=== PATIENT | male | born 1955 | race Caucasian/White ===

== ENCOUNTER 2021-08-15 12:57 | Inpatient (IN) ==
[2021-08-15] MEDS ORDERED: Isovue-370 500 ML BOTTLE IVP ONE (13:33)
[2021-08-15] MEDS ORDERED: Aspirin 325 MG TABLET PO ONE (13:48)
[2021-08-15 14:24] LABS: ABG Base Excess 6 mEq/L (-2 to 3); ABG HCO3 34 mEq/L (21-27); ABG Oxygen Saturation 93 % (95-98); ABG PCO2 61 mmHg (35-45); ABG PH 7.36 pH Units (7.32-7.45); ABG PO2 72 mmHg (85-104); ABG TCO2 36 mEq/L (20-26)
[2021-08-15 14:37] LABS: Red Cell Distribution Width 13.2 % (11.5-14.5)
[2021-08-15 14:38] LABS: Hematocrit 40.5 % (37.5-50.1); Hemoglobin 12.7 g/dL (12.9-16.9); Mean Corpuscular HGB Conc 31.4 g/dL (31.6-35.5); Mean Corpuscular Hemoglobin 29.8 pg (28.0-33.3); Mean Corpuscular Volume 95.1 fL (83.0-100.0); Platelet Count 265 K/mcL (140-400); Red Blood Count 4.26 M/mcL (4.19-5.50); White Blood Count 25.1 K/mcL (4.3-11.1)
[2021-08-15] MEDS ORDERED: cefTRIAXone 1,000 MG in 0.9 % Sodium Chloride Mini Bag 100 ML IVPB ONE (14:45)
[2021-08-15] MEDS ORDERED: Azithromycin 500 MG in 0.9 % Sodium Chloride 250 ML IVPB ONE (14:45)
[2021-08-15 14:48] LABS: INR 1.4; Prothrombin Time 15.2 Seconds (9.4-12.1)
[2021-08-15 14:50] LABS: Activated Partial Thrombo Time 32.7 Seconds (26.0-36.0)
[2021-08-15 15:07] LABS: Influenza A PCR Negative (Negative); Influenza B PCR Negative (Negative); Resp. Syncytial Virus PCR Negative (Negative)
[2021-08-15 15:07] LABS: Alanine Aminotransferase 17 Units/L (7-52); Albumin/Globulin Ratio 0.9 (1.1-2.2); Alkaline Phosphatase 68 Units/L (34-104); Aspartate Amino Transferase 42 Units/L (13-39); BUN/Creatinine Ratio 21 (6-26); Bilirubin,Direct 0.3 mg/dL (0.0-0.2); Bilirubin,Indirect 0.7 mg/dL (0.0-1.0); Blood Urea Nitrogen 22 mg/dL (8-23); Calcium 8.6 mg/dL (8.6-10.3); Carbon Dioxide 31 mEq/L (23-29); Chloride 93 mEq/L (98-107); Globulin 3.5 g/dL (2.4-3.5); Glucose 121 mg/dL (70-105); Osmolality,Calculated 285 (280-300); Potassium 4.1 mEq/L (3.5-5.1); Sodium 135 mEq/L (136-145); Total Protein 6.5 g/dL (6.4-8.9); Troponin I 0.13 ng/mL (< 0.04); eGFR For African Americans > 60 (> 60); eGFR For Non-African Americans > 60 (> 60)
[2021-08-15 15:10] LABS: Eosinophils # 0.5 K/mcL (0.0-0.6); Neutrophils # 21.6 K/mcL (1.6-8.9); Platelet Estimate Normal (Normal); Toxic Granulation Present (Not Present)
[2021-08-15 15:12] LABS: SARS-CoV-2 by PCR (In House) Negative (Negative)
[2021-08-15] MEDS ORDERED: 0.9 % Sodium Chloride 1,000 ML IV ONE (16:10)
[2021-08-15] MEDS ORDERED: Ondansetron 4 MG/2 ML VIAL IVP PRN (16:17)
[2021-08-15] MEDS ORDERED: Naloxone 0.4 MG/ML INJ IVP PRN (16:17)
[2021-08-15] MEDS ORDERED: Perflutren Lipid Microsphere 1.3 ML in 0.9 % Sodium Chloride 8.7 ML IVP PRN (17:14)
[2021-08-15] MEDS ORDERED: Ipratropium/Albuterol Neb 3 ML IH PRN (17:15)
[2021-08-15] MEDS ORDERED: *HR* Dextrose 50 % in Water (Syg) 50 ML SYRINGE IVP PRN (17:23)
[2021-08-15] MEDS ORDERED: Dextrose Gel 15 GM/37.5 ML TUBE PO PRN ×2 (17:23)
[2021-08-15] MEDS ORDERED: D5% in Water 1,000 ML IVC PRN (17:23)
[2021-08-15] MEDS ORDERED: Furosemide 40 MG/4 ML VIAL IVP ONE (17:27)
[2021-08-15] MEDS ORDERED: Vancomycin 2,000 MG/520 ML IV.SOLN IVPB SCH (19:00)
[2021-08-15] MEDS: Budesonide/Formoterol 160/4.5 1 PUFF INH IH SCH (20:34)
[2021-08-15] MEDS: Vancomycin 1,500 MG/265 ML IV.SOLN IVPB SCH (21:25)
[2021-08-15] MEDS: Insulin LISPRO 300 UNITS/3 ML VIAL SUBQ SCH (21:31)
[2021-08-16] MEDS ORDERED: *HR* Heparin 5,000 UNIT/ML VIAL SQ SCH (06:00)
[2021-08-16] MEDS: Vancomycin 1,500 MG/265 ML IV.SOLN IVPB SCH ×2 (06:16→17:37)
[2021-08-16 07:27] LABS: Basophils % 0.2 %; Hematocrit 40.6 % (37.5-50.1); Hemoglobin 12.2 g/dL (12.9-16.9); Immature Granulocytes % 0.5 % (0-4); Lymphocytes # 1.1 K/mcL (0.6-4.6); Lymphocytes % 5.4 %; Mean Corpuscular Volume 96.4 fL (83.0-100.0); Mean Platelet Volume 10.5 fL (9.4-12.4); Monocytes # 1.5 K/mcL (0.0-1.3); Monocytes % 7.3 %; Neutrophils # 18.2 K/mcL (1.6-8.9); Platelet Count 272 K/mcL (140-400); Red Blood Count 4.21 M/mcL (4.19-5.50); Red Cell Distribution Width 13.3 % (11.5-14.5); Segmented Neutrophils % 86.6 %
[2021-08-16 07:40] LABS: BUN/Creatinine Ratio 32 (6-26); Blood Urea Nitrogen 30 mg/dL (8-23); Calcium 8.9 mg/dL (8.6-10.3); Carbon Dioxide 35 mEq/L (23-29); Chloride 94 mEq/L (98-107); Glucose 102 mg/dL (70-105); Magnesium 2.3 mg/dL (1.6-2.6); Osmolality,Calculated 288 (280-300); Phosphorous 3.7 mg/dL (2.7-4.5); Potassium 3.8 mEq/L (3.5-5.1); Sodium 136 mEq/L (136-145); eGFR For African Americans > 60 (> 60); eGFR For Non-African Americans > 60 (> 60)
[2021-08-16] MEDS: Budesonide/Formoterol 160/4.5 1 PUFF INH IH SCH ×2 (08:05→19:46)
[2021-08-16 08:24] LABS: Troponin I 0.11 ng/mL (< 0.04)
[2021-08-16] MEDS: Insulin LISPRO 300 UNITS/3 ML VIAL SUBQ SCH ×4 (08:36→21:09)
[2021-08-16] MEDS: Aspirin Enteric Coated 81 MG Tablet PO SCH (08:37)
[2021-08-16] MEDS: Piperacillin/Tazobactam 3.375 GM in 0.9 % Sodium Chloride Mini Bag 100 ML IVPB SCH ×3 (08:38→23:59)
[2021-08-16] MEDS: FLUoxetine 20 MG CAPSULE PO SCH (08:38)
[2021-08-16] MEDS: Furosemide 40 MG/4 ML VIAL IVP SCH (08:40)
[2021-08-16] MEDS ORDERED: amLODIPine 5 MG TABLET PO SCH (09:00)
[2021-08-16] MEDS: *HR* Metoprolol 5 MG/5 ML VIAL IVP PRN (14:49)
[2021-08-16] MEDS: *HR* Enoxaparin 120 MG/0.8 ML SYRINGE SQ SCH (17:37)
[2021-08-16] MEDS: DilTIAZem 50 MG in 0.9 % Sodium Chloride 40 ML IVC SCH (18:48)
[2021-08-17] MEDS: DilTIAZem 50 MG in 0.9 % Sodium Chloride 40 ML IVC SCH (03:00)
[2021-08-17] MEDS: *HR* Enoxaparin 120 MG/0.8 ML SYRINGE SQ SCH ×2 (05:52→16:37)
[2021-08-17 06:27] LABS: Basophils % 0.2 %; Eosinophils % 0.1 %; Hematocrit 38.5 % (37.5-50.1); Hemoglobin 11.6 g/dL (12.9-16.9); Immature Granulocytes % 0.8 % (0-4); Lymphocytes # 1.1 K/mcL (0.6-4.6); Mean Corpuscular HGB Conc 30.1 g/dL (31.6-35.5); Mean Corpuscular Hemoglobin 29.1 pg (28.0-33.3); Mean Corpuscular Volume 96.5 fL (83.0-100.0); Mean Platelet Volume 10.3 fL (9.4-12.4); Monocytes # 1.9 K/mcL (0.0-1.3); Monocytes % 8.3 %; Neutrophils # 19.3 K/mcL (1.6-8.9); Platelet Count 282 K/mcL (140-400); Red Blood Count 3.99 M/mcL (4.19-5.50); Red Cell Distribution Width 13.4 % (11.5-14.5); Segmented Neutrophils % 85.6 %; White Blood Count 22.5 K/mcL (4.3-11.1)
[2021-08-17 06:47] LABS: BUN/Creatinine Ratio 29 (6-26); Blood Urea Nitrogen 24 mg/dL (8-23); Calcium 8.6 mg/dL (8.6-10.3); Carbon Dioxide 38 mEq/L (23-29); Chloride 101 mEq/L (98-107); Glucose 132 mg/dL (70-105); Magnesium 2.4 mg/dL (1.6-2.6); Osmolality,Calculated 280 (280-300); Phosphorous 3.5 mg/dL (2.7-4.5); Potassium 3.9 mEq/L (3.5-5.1); Sodium 132 mEq/L (136-145); eGFR For African Americans > 60 (> 60); eGFR For Non-African Americans > 60 (> 60)
[2021-08-17] MEDS: Vancomycin 1,500 MG/265 ML IV.SOLN IVPB SCH (07:00)
[2021-08-17] MEDS: Insulin LISPRO 300 UNITS/3 ML VIAL SUBQ SCH ×4 (07:20→20:07)
[2021-08-17] MEDS ORDERED: DilTIAZem 50 MG in 0.9 % Sodium Chloride 40 ML IVC SCH (07:39)
[2021-08-17] MEDS ORDERED: *HR* Metoprolol 5 MG/5 ML VIAL IVP ONE (07:45)
[2021-08-17] MEDS: FLUoxetine 20 MG CAPSULE PO SCH (08:00)
[2021-08-17] MEDS: Furosemide 40 MG/4 ML VIAL IVP SCH (08:00)
[2021-08-17] MEDS: Aspirin Enteric Coated 81 MG Tablet PO SCH (08:00)
[2021-08-17] MEDS: Metoprolol XL (24 HR) Succ 50 MG TAB.ER.24H PO SCH ×2 (08:00→20:22)
[2021-08-17] MEDS: Piperacillin/Tazobactam 3.375 GM in 0.9 % Sodium Chloride Mini Bag 100 ML IVPB SCH ×3 (08:01→23:38)
[2021-08-17] MEDS ORDERED: Amiodarone Premix 150 MG/100 ML BAG IVPB ONE (08:40)
[2021-08-17] MEDS ORDERED: Amiodarone Premix 360 MG/200 ML BAG IVC ONE (08:40)
[2021-08-17 08:46] LABS: ABG Base Excess 9 mEq/L (-2 to 3); ABG HCO3 40 mEq/L (21-27); ABG Oxygen Saturation 88 % (95-98); ABG PCO2 88 mmHg (35-45); ABG PH 7.26 pH Units (7.32-7.45); ABG PO2 65 mmHg (85-104); ABG TCO2 42 mEq/L (20-26); Blood Gas Pressure Support 16 cm H2O
[2021-08-17] MEDS: Budesonide/Formoterol 160/4.5 1 PUFF INH IH SCH ×2 (09:05→22:11)
[2021-08-17] MEDS: Vancomycin 1,750 MG/517.5 ML IV.SOLN IVPB SCH ×2 (09:06→20:22)
[2021-08-17] MEDS ORDERED: Perflutren Lipid Microsphere 1.3 ML in 0.9 % Sodium Chloride 8.7 ML IVP PRN (09:48)
[2021-08-17] MEDS: Amiodarone Premix 360 MG/200 ML BAG IVC SCH (16:29)
[2021-08-17] MEDS ORDERED: *HR* Heparin 5,000 UNIT/ML VIAL IVP PRN ×2 (21:43)
[2021-08-17 22:21] LABS: ABG Base Excess 10 mEq/L (-2 to 3); ABG HCO3 41 mEq/L (21-27); ABG Oxygen Saturation 89 % (95-98); ABG PCO2 91 mmHg (35-45); ABG PH 7.26 pH Units (7.32-7.45); ABG PO2 68 mmHg (85-104); ABG TCO2 44 mEq/L (20-26); Blood Gas Modality avaps; Blood Gas VT 500 cc
[2021-08-17 23:36] LABS: Hematocrit 37.5 % (37.5-50.1); Hemoglobin 11.5 g/dL (12.9-16.9); Mean Corpuscular HGB Conc 30.7 g/dL (31.6-35.5); Mean Corpuscular Hemoglobin 30.1 pg (28.0-33.3); Mean Corpuscular Volume 98.2 fL (83.0-100.0); Platelet Count 285 K/mcL (140-400); Red Blood Count 3.82 M/mcL (4.19-5.50); Red Cell Distribution Width 13.8 % (11.5-14.5); White Blood Count 17.7 K/mcL (4.3-11.1)
[2021-08-17 23:37] LABS: Heparin anti-factor XA UFH 0.25 IU/mL (0.30-0.70); INR 1.3; Prothrombin Time 14.5 Seconds (9.4-12.1)
[2021-08-18] MEDS: Amiodarone Premix 360 MG/200 ML BAG IVC SCH (02:54)
[2021-08-18] MEDS ORDERED: *HR* Heparin 5,000 UNIT/ML VIAL IVP PRN (04:00)
[2021-08-18] MEDS: Heparin 25,000UNIT/250ML 1/2NS 25,000 UNIT/250 ML IV.SOLN IVC SCH ×2 (04:04→22:21)
[2021-08-18 04:56] LABS: Basophils % 0.2 %; Eosinophils % 0.7 %; Hematocrit 38.2 % (37.5-50.1); Hemoglobin 11.9 g/dL (12.9-16.9); Immature Granulocytes % 0.7 % (0-4); Mean Corpuscular HGB Conc 31.2 g/dL (31.6-35.5); Mean Corpuscular Hemoglobin 29.5 pg (28.0-33.3); Mean Corpuscular Volume 94.8 fL (83.0-100.0); Mean Platelet Volume 10.9 fL (9.4-12.4); Monocytes % 8.8 %; Platelet Count 279 K/mcL (140-400); Red Blood Count 4.03 M/mcL (4.19-5.50); Red Cell Distribution Width 13.6 % (11.5-14.5); Segmented Neutrophils % 83.6 %
[2021-08-18 04:57] LABS: Eosinophils # 0.1 K/mcL (0.0-0.6); Lymphocytes # 1.1 K/mcL (0.6-4.6); Monocytes # 1.6 K/mcL (0.0-1.3)
[2021-08-18 05:15] LABS: BUN/Creatinine Ratio 24 (6-26); Blood Urea Nitrogen 34 mg/dL (8-23); Calcium 8.8 mg/dL (8.6-10.3); Carbon Dioxide 34 mEq/L (23-29); Chloride 98 mEq/L (98-107); Glucose 125 mg/dL (70-105); Magnesium 2.4 mg/dL (1.6-2.6); Osmolality,Calculated 293 (280-300); Phosphorous 4.8 mg/dL (2.7-4.5); Potassium 4.9 mEq/L (3.5-5.1); Sodium 137 mEq/L (136-145); eGFR For African Americans > 60 (> 60); eGFR For Non-African Americans 51 (> 60)
[2021-08-18 05:53] LABS: ABG Base Excess 8 mEq/L (-2 to 3); ABG HCO3 39 mEq/L (21-27); ABG Oxygen Saturation 90 % (95-98); ABG PCO2 92 mmHg (35-45); ABG PH 7.24 pH Units (7.32-7.45); ABG PO2 72 mmHg (85-104); ABG TCO2 42 mEq/L (20-26); Blood Gas Modality BiLevel; Blood Gas VT 600 cc
[2021-08-18] MEDS: Budesonide/Formoterol 160/4.5 1 PUFF INH IH SCH ×2 (07:38→20:38)
[2021-08-18] MEDS: Insulin LISPRO 300 UNITS/3 ML VIAL SUBQ SCH ×4 (08:08→21:00)
[2021-08-18] MEDS: Vancomycin 1,750 MG/517.5 ML IV.SOLN IVPB SCH (08:24)
[2021-08-18] MEDS: Piperacillin/Tazobactam 3.375 GM in 0.9 % Sodium Chloride Mini Bag 100 ML IVPB SCH ×2 (08:29→15:46)
[2021-08-18] MEDS: Aspirin Enteric Coated 81 MG Tablet PO SCH (08:33)
[2021-08-18] MEDS: Furosemide 40 MG/4 ML VIAL IVP SCH (08:33)
[2021-08-18] MEDS: Metoprolol XL (24 HR) Succ 50 MG TAB.ER.24H PO SCH ×2 (08:34→21:01)
[2021-08-18] MEDS: FLUoxetine 20 MG CAPSULE PO SCH (08:34)
[2021-08-18] MEDS: *HR* Heparin 5,000 UNIT/ML VIAL IVP PRN ×2 (12:28→20:45)
[2021-08-19] MEDS: Piperacillin/Tazobactam 3.375 GM in 0.9 % Sodium Chloride Mini Bag 100 ML IVPB SCH ×4 (00:44→23:15)
[2021-08-19 03:28] LABS: Basophils % 0.2 %; Hematocrit 37.6 % (37.5-50.1); Hemoglobin 11.2 g/dL (12.9-16.9); Lymphocytes % 6.3 %; Mean Corpuscular HGB Conc 29.8 g/dL (31.6-35.5); Mean Corpuscular Hemoglobin 29.9 pg (28.0-33.3); Mean Corpuscular Volume 100.3 fL (83.0-100.0); Mean Platelet Volume 10.5 fL (9.4-12.4); Monocytes # 1.5 K/mcL (0.0-1.3); Monocytes % 9.8 %; Neutrophils # 12.8 K/mcL (1.6-8.9); Platelet Count 288 K/mcL (140-400); Red Blood Count 3.75 M/mcL (4.19-5.50); Segmented Neutrophils % 82.7 %; White Blood Count 15.5 K/mcL (4.3-11.1)
[2021-08-19 03:45] LABS: Calcium 8.6 mg/dL (8.6-10.3); Magnesium 2.7 mg/dL (1.6-2.6); Phosphorous 8.5 mg/dL (2.7-4.5); Potassium 4.7 mEq/L (3.5-5.1)
[2021-08-19] MEDS: *HR* Heparin 5,000 UNIT/ML VIAL IVP PRN (04:24)
[2021-08-19] MEDS ORDERED: 0.9 % Sodium Chloride 500 ML IVC ONE (08:01)
[2021-08-19] MEDS: Budesonide/Formoterol 160/4.5 1 PUFF INH IH SCH ×2 (08:23→19:52)
[2021-08-19] MEDS: Insulin LISPRO 300 UNITS/3 ML VIAL SUBQ SCH ×4 (08:54→20:58)
[2021-08-19] MEDS: FLUoxetine 20 MG CAPSULE PO SCH (08:58)
[2021-08-19] MEDS: Aspirin Enteric Coated 81 MG Tablet PO SCH (08:58)
[2021-08-19] MEDS: Metoprolol XL (24 HR) Succ 50 MG TAB.ER.24H PO SCH ×2 (08:58→20:57)
[2021-08-19 10:09] LABS: Uric Acid 8.8 mg/dL (2.3-7.6)
[2021-08-19] MEDS ORDERED: 0.9 % Sodium Chloride 250 ML IVC ONE (10:41)
[2021-08-19] MEDS ORDERED: Furosemide 40 MG/4 ML VIAL IVP ONE (10:56)
[2021-08-19 11:07] LABS: ABG Base Excess 4 mEq/L (-2 to 3); ABG HCO3 35 mEq/L (21-27); ABG Oxygen Saturation 91 % (95-98); ABG PCO2 97 mmHg (35-45); ABG PH 7.17 pH Units (7.32-7.45); ABG PO2 82 mmHg (85-104); ABG TCO2 38 mEq/L (20-26)
[2021-08-19 12:04] LABS: Sodium, Urine 24.6 mEq/L
[2021-08-19 12:07] LABS: Bilirubin,Urine Negative (Negative); Blood,Urine Large (Negative); Clarity,Urine Ex.Turbid (Clear); Color,Urine Light-Orange (Yellow); Glucose,Urine (UA) Normal (Normal); Ketones,Urine Negative (Negative); Leukocyte Esterase,Urine Large (Negative); Nitrite,Urine Negative (Negative); PH,Urine 5.5 pH Units (5.0-8.0); Protein,Urine 70 mg/dL (Neg-Trace); RBC,Urine 50-100 per hpf (0-3); Specific Gravity,Urine 1.017 (1.010-1.025); Squamous Epithelial Cell,Urine Many per hpf (None-Few); Urobilinogen,Urine Normal (Normal); WBC,Urine 50-100 per hpf (0-3)
[2021-08-19 12:22] LABS: ABG Base Excess 3 mEq/L (-2 to 3); ABG HCO3 33 mEq/L (21-27); ABG Oxygen Saturation 92 % (95-98); ABG PCO2 82 mmHg (35-45); ABG PH 7.22 pH Units (7.32-7.45); ABG PO2 79 mmHg (85-104); ABG TCO2 36 mEq/L (20-26); Blood Gas VT 500 cc
[2021-08-19] MEDS ORDERED: methylPREDNISolone 125 MG/2 ML VIAL IVP ONE (13:26)
[2021-08-19] MEDS: Heparin 25,000UNIT/250ML 1/2NS 25,000 UNIT/250 ML IV.SOLN IVC SCH (13:29)
[2021-08-19] MEDS ORDERED: Furosemide 240 MG in 0.9 % Sodium Chloride 96 ML IVC SCH ×2 (15:00→17:15)
[2021-08-19] MEDS: Albumin 25% 25gram/100mL 25 GM/100 ML IV.SOLN IVPB SCH ×2 (15:28→20:57)
[2021-08-19] MEDS: Ipratropium/Albuterol Neb 3 ML IH SCH ×3 (15:52→23:37)
[2021-08-19] MEDS ORDERED: Budesonide/Formoterol 160/4.5 1 PUFF INH IH SCH (22:00)
[2021-08-19] MEDS: MethylPREDNISolone 40 MG/ML VIAL IVP SCH (23:15)
[2021-08-20] MEDS: Heparin 25,000UNIT/250ML 1/2NS 25,000 UNIT/250 ML IV.SOLN IVC SCH ×2 (03:27→18:10)
[2021-08-20] MEDS: Ipratropium/Albuterol Neb 3 ML IH SCH ×6 (04:11→23:37)
[2021-08-20 04:19] LABS: Basophils % 0.2 %; Hematocrit 33.6 % (37.5-50.1); Hemoglobin 10.2 g/dL (12.9-16.9); Lymphocytes # 0.6 K/mcL (0.6-4.6); Lymphocytes % 4.9 %; Mean Corpuscular HGB Conc 30.4 g/dL (31.6-35.5); Mean Corpuscular Hemoglobin 29.3 pg (28.0-33.3); Mean Corpuscular Volume 96.6 fL (83.0-100.0); Mean Platelet Volume 10.7 fL (9.4-12.4); Monocytes # 0.4 K/mcL (0.0-1.3); Monocytes % 2.9 %; Neutrophils # 11.5 K/mcL (1.6-8.9); Platelet Count 298 K/mcL (140-400); Red Blood Count 3.48 M/mcL (4.19-5.50); Red Cell Distribution Width 14.1 % (11.5-14.5); White Blood Count 12.7 K/mcL (4.3-11.1)
[2021-08-20 04:34] LABS: Calcium 8.3 mg/dL (8.6-10.3); Magnesium 2.9 mg/dL (1.6-2.6); Phosphorous 8.3 mg/dL (2.7-4.5); Potassium 4.9 mEq/L (3.5-5.1)
[2021-08-20] MEDS: Albumin 25% 25gram/100mL 25 GM/100 ML IV.SOLN IVPB SCH (05:50)
[2021-08-20] MEDS: Budesonide/Formoterol 160/4.5 1 PUFF INH IH SCH ×2 (08:27→20:15)
[2021-08-20] MEDS: Insulin LISPRO 300 UNITS/3 ML VIAL SUBQ SCH ×4 (09:17→21:31)
[2021-08-20] MEDS: Piperacillin/Tazobactam 3.375 GM in 0.9 % Sodium Chloride Mini Bag 100 ML IVPB SCH ×2 (09:19→21:36)
[2021-08-20] MEDS: MethylPREDNISolone 40 MG/ML VIAL IVP SCH (09:19)
[2021-08-20] MEDS: Metoprolol XL (24 HR) Succ 50 MG TAB.ER.24H PO SCH ×2 (09:20→20:36)
[2021-08-20] MEDS: Aspirin Enteric Coated 81 MG Tablet PO SCH (09:20)
[2021-08-20] MEDS: FLUoxetine 20 MG CAPSULE PO SCH (09:20)
[2021-08-20] MEDS ORDERED: 0.9 % Sodium Chloride 250 ML IVC PRN (10:02)
[2021-08-20] MEDS ORDERED: *HR* Heparin 10,000 UNIT/10 ML VIAL IV PRN (10:02)
[2021-08-20] MEDS ORDERED: Lidocaine/EPI 1:100k 1% 50 ML VIAL ONE (10:13)
[2021-08-20] MEDS ORDERED: Heparin 1,000 UNITS/500 mL 500 ML ONE ×2 (10:13→11:37)
[2021-08-20] MEDS ORDERED: 0.9 % Sodium Chloride 1,000 ML PRIME SCH (10:15)
[2021-08-20] MEDS ORDERED: *HR* Heparin 5,000 UNIT/ML VIAL ONE (12:19)
[2021-08-20 21:03] LABS: Hepatitis B Surface Antigen Nonreactive (Nonreactive)
[2021-08-20 22:05] LABS: ABG Base Excess 4 mEq/L (-2 to 3); ABG HCO3 33 mEq/L (21-27); ABG Oxygen Saturation 95 % (95-98); ABG PCO2 72 mmHg (35-45); ABG PH 7.27 pH Units (7.32-7.45); ABG PO2 89 mmHg (85-104); ABG TCO2 35 mEq/L (20-26); Blood Gas Modality AVAPS; Blood Gas VT 500 cc
[2021-08-20] MEDS: Haloperidol Lactate 5 MG/ML VIAL IM PRN (23:01)
[2021-08-21 00:32] LABS: Hepatitis B Surface Antibody < 3.10 mIU/mL
[2021-08-21 03:22] LABS: Basophils % 0.2 %; Hematocrit 32.3 % (37.5-50.1); Immature Granulocytes % 1.2 % (0-4); Lymphocytes # 0.8 K/mcL (0.6-4.6); Lymphocytes % 5.2 %; Mean Corpuscular Volume 93.6 fL (83.0-100.0); Mean Platelet Volume 10.4 fL (9.4-12.4); Monocytes # 1.2 K/mcL (0.0-1.3); Monocytes % 8.2 %; Neutrophils # 12.4 K/mcL (1.6-8.9); Nucleated Red Blood Cells 0.3 /100 WBC (0); Platelet Count 292 K/mcL (140-400); Red Blood Count 3.45 M/mcL (4.19-5.50); Segmented Neutrophils % 85.2 %; White Blood Count 14.6 K/mcL (4.3-11.1)
[2021-08-21 03:42] LABS: Calcium 8.5 mg/dL (8.6-10.3); Magnesium 2.6 mg/dL (1.6-2.6); Phosphorous 6.6 mg/dL (2.7-4.5); Potassium 4.2 mEq/L (3.5-5.1)
[2021-08-21] MEDS: Ipratropium/Albuterol Neb 3 ML IH SCH ×5 (03:54→20:57)
[2021-08-21 04:44] LABS: ABG Base Excess 7 mEq/L (-2 to 3); ABG HCO3 35 mEq/L (21-27); ABG Oxygen Saturation 91 % (95-98); ABG PCO2 69 mmHg (35-45); ABG PH 7.32 pH Units (7.32-7.45); ABG PO2 70 mmHg (85-104); ABG TCO2 37 mEq/L (20-26); Blood Gas Modality AVAPS; Blood Gas VT 550 cc
[2021-08-21] MEDS: Heparin 25,000UNIT/250ML 1/2NS 25,000 UNIT/250 ML IV.SOLN IVC SCH ×2 (04:50→14:25)
[2021-08-21 06:57] LABS: Adenovirus F 40/41 PCR Not detected (Not detect); Astrovirus PCR Not detected (Not detect); C.difficile Toxin A/B Gene PCR Not detected (Not detect); Campylobacter by PCR Not detected (Not detect); Cryptosporidium by PCR Not detected (Not detect); Cyclospora cayetanensis PCR Not detected (Not detect); E. coli O157 by PCR Not detected (Not detect); Entamoeba histolytica PCR Not detected (Not detect); Enteroaggregative E.coli(EAEC) Not detected (Not detect); Enteropathogenic E.coli(EPEC) Not detected (Not detect); Enterotoxigenic E.coli (ETEC) Not detected (Not detect); Giardia lamblia PCR Not detected (Not detect); Norovirus GI/GII PCR Not detected (Not detect); Plesiomonas shigelloides PCR Not detected (Not detect); Rotavirus A PCR Not detected (Not detect); Salmonella PCR Not detected (Not detect); Sapovirus PCR Not detected (Not detect); Shig/EnteroinvasiveE coli EIEC Not detected (Not detect); Shigalike tox-prod E coli STEC Not detected (Not detect); Vibrio PCR Not detected (Not detect); Vibrio cholerae PCR Not detected (Not detect); Yersinia enterocolitica PCR Not detected (Not detect)
[2021-08-21] MEDS: Budesonide/Formoterol 160/4.5 1 PUFF INH IH SCH ×2 (07:26→20:57)
[2021-08-21] MEDS: Insulin LISPRO 300 UNITS/3 ML VIAL SUBQ SCH ×4 (08:21→22:35)
[2021-08-21] MEDS: Metoprolol XL (24 HR) Succ 50 MG TAB.ER.24H PO SCH ×2 (08:22→21:31)
[2021-08-21] MEDS: Piperacillin/Tazobactam 3.375 GM in 0.9 % Sodium Chloride Mini Bag 100 ML IVPB SCH ×2 (08:22→21:31)
[2021-08-21] MEDS: Aspirin Enteric Coated 81 MG Tablet PO SCH (08:22)
[2021-08-21] MEDS: FLUoxetine 20 MG CAPSULE PO SCH (08:22)
[2021-08-21] MEDS ORDERED: 0.9 % Sodium Chloride 250 ML IVC PRN (08:41)
[2021-08-21] MEDS ORDERED: *HR* Heparin 10,000 UNIT/10 ML VIAL IV PRN (08:41)
[2021-08-21] MEDS ORDERED: 0.9 % Sodium Chloride 1,000 ML PRIME SCH (08:45)
[2021-08-21] MEDS: Haloperidol Lactate 5 MG/ML VIAL IM PRN (16:47)
[2021-08-22] MEDS: Heparin 25,000UNIT/250ML 1/2NS 25,000 UNIT/250 ML IV.SOLN IVC SCH ×3 (00:01→22:34)
[2021-08-22] MEDS: Haloperidol Lactate 5 MG/ML VIAL IM PRN ×2 (03:44→14:10)
[2021-08-22 04:02] LABS: Basophils # 0.1 K/mcL (0.0-0.2); Basophils % 0.6 %; Hematocrit 34.7 % (37.5-50.1); Hemoglobin 10.4 g/dL (12.9-16.9); Immature Granulocytes % 4.3 % (0-4); Lymphocytes # 1.2 K/mcL (0.6-4.6); Lymphocytes % 9.5 %; Mean Corpuscular Hemoglobin 28.6 pg (28.0-33.3); Mean Corpuscular Volume 95.3 fL (83.0-100.0); Mean Platelet Volume 10.4 fL (9.4-12.4); Monocytes # 1.3 K/mcL (0.0-1.3); Monocytes % 10.5 %; Neutrophils # 9.4 K/mcL (1.6-8.9); Nucleated Red Blood Cells 0.2 /100 WBC (0); Platelet Count 288 K/mcL (140-400); Red Blood Count 3.64 M/mcL (4.19-5.50); Red Cell Distribution Width 13.8 % (11.5-14.5); Segmented Neutrophils % 75.1 %; White Blood Count 12.6 K/mcL (4.3-11.1)
[2021-08-22] MEDS: Ipratropium/Albuterol Neb 3 ML IH SCH ×7 (04:18→23:48)
[2021-08-22 04:25] LABS: Calcium 8.3 mg/dL (8.6-10.3); Magnesium 2.5 mg/dL (1.6-2.6); Phosphorous 5.9 mg/dL (2.7-4.5); Potassium 4.4 mEq/L (3.5-5.1)
[2021-08-22] MEDS: Budesonide/Formoterol 160/4.5 1 PUFF INH IH SCH ×2 (07:58→20:03)
[2021-08-22] MEDS ORDERED: 0.9 % Sodium Chloride 250 ML IVC PRN (08:05)
[2021-08-22] MEDS ORDERED: *HR* Heparin 10,000 UNIT/10 ML VIAL IV PRN (08:05)
[2021-08-22] MEDS: Piperacillin/Tazobactam 3.375 GM in 0.9 % Sodium Chloride Mini Bag 100 ML IVPB SCH ×2 (08:59→19:53)
[2021-08-22] MEDS: Insulin LISPRO 300 UNITS/3 ML VIAL SUBQ SCH ×4 (08:59→19:52)
[2021-08-22] MEDS: Metoprolol XL (24 HR) Succ 50 MG TAB.ER.24H PO SCH ×2 (09:11→19:53)
[2021-08-22] MEDS: Aspirin Enteric Coated 81 MG Tablet PO SCH (09:12)
[2021-08-22] MEDS: FLUoxetine 20 MG CAPSULE PO SCH (09:12)
[2021-08-22] MEDS: *HR* Metoprolol 5 MG/5 ML VIAL IVP PRN (14:30)
[2021-08-22] MEDS ORDERED: Vancomycin 500 MG in 0.9 % Sodium Chloride Mini Bag 100 ML IVPB ONE (15:00)
[2021-08-22 17:10] LABS: ABG Base Excess 2 mEq/L (-2 to 3); ABG HCO3 30 mEq/L (21-27); ABG Oxygen Saturation 95 % (95-98); ABG PCO2 66 mmHg (35-45); ABG PH 7.26 pH Units (7.32-7.45); ABG PO2 86 mmHg (85-104); ABG TCO2 32 mEq/L (20-26)
[2021-08-23] MEDS: Ipratropium/Albuterol Neb 3 ML IH SCH ×6 (03:48→23:59)
[2021-08-23] MEDS: Haloperidol Lactate 5 MG/ML VIAL IM PRN ×2 (03:52→20:10)
[2021-08-23 05:39] LABS: Hematocrit 32.5 % (37.5-50.1); Hemoglobin 9.9 g/dL (12.9-16.9); Mean Corpuscular HGB Conc 30.5 g/dL (31.6-35.5); Mean Corpuscular Hemoglobin 28.9 pg (28.0-33.3); Mean Corpuscular Volume 94.8 fL (83.0-100.0); Mean Platelet Volume 10.5 fL (9.4-12.4); Platelet Count 250 K/mcL (140-400); Red Blood Count 3.43 M/mcL (4.19-5.50); Red Cell Distribution Width 13.6 % (11.5-14.5); Segmented Neutrophils % 80.2 %; White Blood Count 12.5 K/mcL (4.3-11.1)
[2021-08-23 05:40] LABS: Basophils # 0.1 K/mcL (0.0-0.2); Basophils % 0.4 %; Eosinophils % 0.2 %; Lymphocytes # 1.1 K/mcL (0.6-4.6); Monocytes # 0.9 K/mcL (0.0-1.3); Monocytes % 7.2 %
[2021-08-23 05:59] LABS: Albumin 2.8 g/dL (3.5-5.7); Albumin/Globulin Ratio 0.9 (1.1-2.2); Bilirubin,Total 0.6 mg/dL (0.3-1.0); Calcium 8.4 mg/dL (8.6-10.3); Globulin 3.2 g/dL (2.4-3.5); Potassium 4.2 mEq/L (3.5-5.1)
[2021-08-23] MEDS: *HR* Heparin 5,000 UNIT/ML VIAL IVP PRN (06:19)
[2021-08-23] MEDS: Budesonide/Formoterol 160/4.5 1 PUFF INH IH SCH ×2 (08:24→20:59)
[2021-08-23] MEDS: FLUoxetine 20 MG CAPSULE PO SCH (09:45)
[2021-08-23] MEDS: Piperacillin/Tazobactam 3.375 GM in 0.9 % Sodium Chloride Mini Bag 100 ML IVPB SCH ×2 (09:45→20:26)
[2021-08-23] MEDS: Aspirin Enteric Coated 81 MG Tablet PO SCH (09:45)
[2021-08-23] MEDS: Metoprolol XL (24 HR) Succ 50 MG TAB.ER.24H PO SCH ×2 (09:45→20:26)
[2021-08-23] MEDS: Insulin LISPRO 300 UNITS/3 ML VIAL SUBQ SCH ×3 (09:46→16:16)
[2021-08-23 10:58] LABS: VBG HCO3 29 mEq/L (21-27); VBG PCO2 60 mmHg (41-51); VBG PO2 76 mmHg (25-50)
[2021-08-23] MEDS: Heparin 25,000UNIT/250ML 1/2NS 25,000 UNIT/250 ML IV.SOLN IVC SCH ×2 (11:09→20:27)
[2021-08-24] MEDS: Insulin LISPRO 300 UNITS/3 ML VIAL SUBQ SCH ×5 (00:04→20:26)
[2021-08-24 04:13] LABS: Basophils # 0.1 K/mcL (0.0-0.2); Basophils % 0.3 %; Eosinophils # 0.1 K/mcL (0.0-0.6); Eosinophils % 0.5 %; Hematocrit 29.9 % (37.5-50.1); Hemoglobin 9.3 g/dL (12.9-16.9); Immature Granulocytes % 2.3 % (0-4); Lymphocytes # 1.4 K/mcL (0.6-4.6); Lymphocytes % 9.3 %; Mean Corpuscular HGB Conc 31.1 g/dL (31.6-35.5); Mean Corpuscular Hemoglobin 29.2 pg (28.0-33.3); Mean Platelet Volume 10.4 fL (9.4-12.4); Monocytes # 0.9 K/mcL (0.0-1.3); Monocytes % 6.1 %; Neutrophils # 12.2 K/mcL (1.6-8.9); Platelet Count 255 K/mcL (140-400); Red Blood Count 3.18 M/mcL (4.19-5.50); Red Cell Distribution Width 13.6 % (11.5-14.5); Segmented Neutrophils % 81.5 %; White Blood Count 14.9 K/mcL (4.3-11.1)
[2021-08-24] MEDS: Ipratropium/Albuterol Neb 3 ML IH SCH ×5 (04:20→20:49)
[2021-08-24 04:31] LABS: Albumin 2.9 g/dL (3.5-5.7); Albumin/Globulin Ratio 0.9 (1.1-2.2); Bilirubin,Total 0.5 mg/dL (0.3-1.0); Calcium 8.6 mg/dL (8.6-10.3); Globulin 3.2 g/dL (2.4-3.5); Potassium 3.9 mEq/L (3.5-5.1); Total Protein 6.1 g/dL (6.4-8.9)
[2021-08-24] MEDS: Heparin 25,000UNIT/250ML 1/2NS 25,000 UNIT/250 ML IV.SOLN IVC SCH ×3 (04:49→20:29)
[2021-08-24] MEDS: Aspirin Enteric Coated 81 MG Tablet PO SCH (08:04)
[2021-08-24] MEDS: Metoprolol XL (24 HR) Succ 50 MG TAB.ER.24H PO SCH ×2 (08:04→20:27)
[2021-08-24] MEDS: Piperacillin/Tazobactam 3.375 GM in 0.9 % Sodium Chloride Mini Bag 100 ML IVPB SCH ×2 (08:04→20:27)
[2021-08-24] MEDS: FLUoxetine 20 MG CAPSULE PO SCH (08:04)
[2021-08-24] MEDS: Budesonide/Formoterol 160/4.5 1 PUFF INH IH SCH ×2 (08:23→20:49)
[2021-08-24] MEDS: Saline Nasal Spray 44 ML BOTTLE NS PRN (20:28)
[2021-08-25] MEDS: Ipratropium/Albuterol Neb 3 ML IH SCH ×8 (00:18→23:59)
[2021-08-25 01:11] LABS: Hematocrit 29.5 % (37.5-50.1); Hemoglobin 9.2 g/dL (12.9-16.9)
[2021-08-25] MEDS: Pantoprazole 40 MG VIAL IVP SCH ×2 (01:32→17:02)
[2021-08-25] MEDS: Sucralfate 1 GM TABLET PO SCH ×5 (01:32→21:30)
[2021-08-25] MEDS: *HR* Metoprolol 5 MG/5 ML VIAL IVP PRN ×2 (01:45→09:27)
[2021-08-25] MEDS ORDERED: *HR* Metoprolol 5 MG/5 ML VIAL IVP ONE (04:11)
[2021-08-25 05:18] LABS: Basophils # 0.1 K/mcL (0.0-0.2); Basophils % 0.3 %; Eosinophils # 0.2 K/mcL (0.0-0.6); Eosinophils % 1.3 %; Hematocrit 30.2 % (37.5-50.1); Hemoglobin 9.1 g/dL (12.9-16.9); Immature Granulocytes % 2.5 % (0-4); Lymphocytes # 1.2 K/mcL (0.6-4.6); Lymphocytes % 7.1 %; Mean Corpuscular HGB Conc 30.1 g/dL (31.6-35.5); Mean Corpuscular Hemoglobin 28.6 pg (28.0-33.3); Mean Platelet Volume 11.1 fL (9.4-12.4); Monocytes # 1.1 K/mcL (0.0-1.3); Monocytes % 6.2 %; Neutrophils # 14.3 K/mcL (1.6-8.9); Nucleated Red Blood Cells 0.1 /100 WBC (0); Platelet Count 255 K/mcL (140-400); Red Blood Count 3.18 M/mcL (4.19-5.50); Red Cell Distribution Width 13.8 % (11.5-14.5); Segmented Neutrophils % 82.6 %; White Blood Count 17.3 K/mcL (4.3-11.1)
[2021-08-25] MEDS ORDERED: Pantoprazole 40 MG VIAL IVP SCH (06:00)
[2021-08-25 06:38] LABS: Albumin 2.9 g/dL (3.5-5.7); Albumin/Globulin Ratio 0.9 (1.1-2.2); Bilirubin,Total 0.4 mg/dL (0.3-1.0); Calcium 8.7 mg/dL (8.6-10.3); Globulin 3.3 g/dL (2.4-3.5); Potassium 4.3 mEq/L (3.5-5.1); Total Protein 6.2 g/dL (6.4-8.9)
[2021-08-25] MEDS: Budesonide/Formoterol 160/4.5 1 PUFF INH IH SCH ×2 (07:27→19:58)
[2021-08-25] MEDS ORDERED: Sucralfate 1 GM TABLET PO SCH (07:30)
[2021-08-25] MEDS: Insulin LISPRO 300 UNITS/3 ML VIAL SUBQ SCH ×4 (07:33→21:25)
[2021-08-25] MEDS: Aspirin Enteric Coated 81 MG Tablet PO SCH (08:28)
[2021-08-25] MEDS: FLUoxetine 20 MG CAPSULE PO SCH (08:28)
[2021-08-25] MEDS: Metoprolol XL (24 HR) Succ 50 MG TAB.ER.24H PO SCH ×2 (08:28→21:30)
[2021-08-25] MEDS: Piperacillin/Tazobactam 3.375 GM in 0.9 % Sodium Chloride Mini Bag 100 ML IVPB SCH (08:29)
[2021-08-25] MEDS: Furosemide 40 MG TABLET PO SCH ×2 (12:00→17:02)
[2021-08-25] MEDS: DilTIAZem CD (24hr) 240 MG CAP.ER.24H PO SCH (12:00)
[2021-08-25 14:34] LABS: Hematocrit 29.4 % (37.5-50.1); Hemoglobin 9.3 g/dL (12.9-16.9)
[2021-08-25] MEDS ORDERED: Piperacillin/Tazobactam 3.375 GM in 0.9 % Sodium Chloride Mini Bag 100 ML IVPB SCH (17:00)
[2021-08-26 01:59] LABS: Basophils # 0.1 K/mcL (0.0-0.2); Basophils % 0.3 %; Eosinophils # 0.3 K/mcL (0.0-0.6); Eosinophils % 1.6 %; Hematocrit 30.3 % (37.5-50.1); Hemoglobin 9.2 g/dL (12.9-16.9); Immature Granulocytes % 2.4 % (0-4); Lymphocytes # 1.5 K/mcL (0.6-4.6); Lymphocytes % 8.3 %; Mean Corpuscular HGB Conc 30.4 g/dL (31.6-35.5); Mean Corpuscular Hemoglobin 29.3 pg (28.0-33.3); Mean Corpuscular Volume 96.5 fL (83.0-100.0); Monocytes # 1.3 K/mcL (0.0-1.3); Neutrophils # 14.4 K/mcL (1.6-8.9); Platelet Count 268 K/mcL (140-400); Red Blood Count 3.14 M/mcL (4.19-5.50); Red Cell Distribution Width 13.9 % (11.5-14.5); Segmented Neutrophils % 80.4 %
[2021-08-26 02:21] LABS: Albumin 3.1 g/dL (3.5-5.7); Albumin/Globulin Ratio 0.9 (1.1-2.2); Bilirubin,Total 0.4 mg/dL (0.3-1.0); Calcium 8.6 mg/dL (8.6-10.3); Globulin 3.4 g/dL (2.4-3.5); Potassium 3.9 mEq/L (3.5-5.1); Total Protein 6.5 g/dL (6.4-8.9)
[2021-08-26] MEDS: Ipratropium/Albuterol Neb 3 ML IH SCH ×5 (03:43→19:59)
[2021-08-26] MEDS: Pantoprazole 40 MG VIAL IVP SCH ×2 (05:59→16:49)
[2021-08-26] MEDS: Budesonide/Formoterol 160/4.5 1 PUFF INH IH SCH ×2 (07:38→19:59)
[2021-08-26] MEDS: Sucralfate 1 GM TABLET PO SCH ×4 (08:18→21:16)
[2021-08-26] MEDS: Furosemide 40 MG TABLET PO SCH ×2 (08:18→16:49)
[2021-08-26] MEDS: Aspirin Enteric Coated 81 MG Tablet PO SCH (08:18)
[2021-08-26] MEDS: FLUoxetine 20 MG CAPSULE PO SCH (08:18)
[2021-08-26] MEDS: Metoprolol XL (24 HR) Succ 50 MG TAB.ER.24H PO SCH ×2 (08:19→21:16)
[2021-08-26] MEDS: DilTIAZem CD (24hr) 240 MG CAP.ER.24H PO SCH (08:22)
[2021-08-26] MEDS: Insulin LISPRO 300 UNITS/3 ML VIAL SUBQ SCH ×4 (08:25→20:28)
[2021-08-26] MEDS: *HR* Heparin 5,000 UNIT/ML VIAL SQ SCH ×3 (13:07→21:16)
[2021-08-27] MEDS: Ipratropium/Albuterol Neb 3 ML IH SCH ×7 (00:01→23:28)
[2021-08-27 05:05] LABS: Basophils # 0.1 K/mcL (0.0-0.2); Basophils % 0.3 %; Eosinophils # 0.2 K/mcL (0.0-0.6); Eosinophils % 1.1 %; Hematocrit 27.4 % (37.5-50.1); Hemoglobin 8.9 g/dL (12.9-16.9); Immature Granulocytes % 1.6 % (0-4); Lymphocytes # 1.4 K/mcL (0.6-4.6); Lymphocytes % 7.4 %; Mean Corpuscular HGB Conc 32.5 g/dL (31.6-35.5); Mean Corpuscular Volume 92.3 fL (83.0-100.0); Mean Platelet Volume 11.2 fL (9.4-12.4); Monocytes # 1.5 K/mcL (0.0-1.3); Monocytes % 7.6 %; Neutrophils # 15.6 K/mcL (1.6-8.9); Platelet Count 284 K/mcL (140-400); Red Blood Count 2.97 M/mcL (4.19-5.50); Red Cell Distribution Width 13.8 % (11.5-14.5)
[2021-08-27 05:30] LABS: Albumin/Globulin Ratio 0.9 (1.1-2.2); Bilirubin,Total 0.4 mg/dL (0.3-1.0); Calcium 8.5 mg/dL (8.6-10.3); Globulin 3.5 g/dL (2.4-3.5); Potassium 3.8 mEq/L (3.5-5.1); Total Protein 6.5 g/dL (6.4-8.9)
[2021-08-27] MEDS: Pantoprazole 40 MG VIAL IVP SCH ×2 (05:52→17:36)
[2021-08-27] MEDS: *HR* Heparin 5,000 UNIT/ML VIAL SQ SCH ×3 (05:52→21:09)
[2021-08-27] MEDS: Budesonide/Formoterol 160/4.5 1 PUFF INH IH SCH ×2 (07:39→20:27)
[2021-08-27] MEDS: Furosemide 40 MG TABLET PO SCH (07:43)
[2021-08-27] MEDS: Aspirin Enteric Coated 81 MG Tablet PO SCH (07:43)
[2021-08-27] MEDS: DilTIAZem CD (24hr) 240 MG CAP.ER.24H PO SCH (07:44)
[2021-08-27] MEDS: FLUoxetine 20 MG CAPSULE PO SCH (07:44)
[2021-08-27] MEDS: Insulin LISPRO 300 UNITS/3 ML VIAL SUBQ SCH ×4 (07:44→21:05)
[2021-08-27] MEDS: Metoprolol XL (24 HR) Succ 50 MG TAB.ER.24H PO SCH ×2 (07:44→21:10)
[2021-08-27] MEDS: Sucralfate 1 GM TABLET PO SCH ×4 (07:44→21:10)
[2021-08-27] MEDS: *HR* LORazepam 2 MG/ML VIAL IVP PRN (15:52)
[2021-08-27] MEDS ORDERED: Haloperidol Lactate 5 MG/ML VIAL IVP ONE (23:05)
[2021-08-28 01:55] LABS: Basophils # 0.1 K/mcL (0.0-0.2); Basophils % 0.2 %; Eosinophils # 0.2 K/mcL (0.0-0.6); Eosinophils % 0.7 %; Hematocrit 28.8 % (37.5-50.1); Immature Granulocytes % 1.2 % (0-4); Lymphocytes # 1.1 K/mcL (0.6-4.6); Lymphocytes % 5.2 %; Mean Corpuscular HGB Conc 31.3 g/dL (31.6-35.5); Mean Corpuscular Hemoglobin 29.8 pg (28.0-33.3); Mean Corpuscular Volume 95.4 fL (83.0-100.0); Mean Platelet Volume 10.8 fL (9.4-12.4); Monocytes # 1.7 K/mcL (0.0-1.3); Monocytes % 7.7 %; Neutrophils # 18.4 K/mcL (1.6-8.9); Platelet Count 295 K/mcL (140-400); Red Blood Count 3.02 M/mcL (4.19-5.50); White Blood Count 21.6 K/mcL (4.3-11.1)
[2021-08-28 02:17] LABS: Calcium 8.4 mg/dL (8.6-10.3); Magnesium 1.9 mg/dL (1.6-2.6); Phosphorous 4.9 mg/dL (2.7-4.5); Potassium 3.8 mEq/L (3.5-5.1)
[2021-08-28] MEDS: Ipratropium/Albuterol Neb 3 ML IH SCH ×6 (03:52→23:40)
[2021-08-28] MEDS: *HR* Heparin 5,000 UNIT/ML VIAL SQ SCH ×3 (05:14→20:58)
[2021-08-28] MEDS: Pantoprazole 40 MG VIAL IVP SCH ×2 (05:14→17:17)
[2021-08-28] MEDS: Budesonide/Formoterol 160/4.5 1 PUFF INH IH SCH ×2 (07:37→19:48)
[2021-08-28] MEDS: FLUoxetine 20 MG CAPSULE PO SCH (08:13)
[2021-08-28] MEDS: DilTIAZem CD (24hr) 240 MG CAP.ER.24H PO SCH (08:13)
[2021-08-28] MEDS: Metoprolol XL (24 HR) Succ 50 MG TAB.ER.24H PO SCH ×2 (08:13→20:58)
[2021-08-28] MEDS: Sucralfate 1 GM TABLET PO SCH ×4 (08:13→20:58)
[2021-08-28] MEDS: Aspirin Enteric Coated 81 MG Tablet PO SCH (08:13)
[2021-08-28] MEDS: Insulin LISPRO 300 UNITS/3 ML VIAL SUBQ SCH ×4 (08:14→19:32)
[2021-08-29] MEDS: Ipratropium/Albuterol Neb 3 ML IH SCH ×6 (03:49→23:11)
[2021-08-29] MEDS: Pantoprazole 40 MG VIAL IVP SCH ×2 (05:57→17:08)
[2021-08-29] MEDS: *HR* Heparin 5,000 UNIT/ML VIAL SQ SCH ×3 (05:57→20:59)
[2021-08-29 06:48] LABS: Basophils # 0.1 K/mcL (0.0-0.2); Basophils % 0.3 %; Eosinophils # 0.2 K/mcL (0.0-0.6); Hematocrit 28.7 % (37.5-50.1); Hemoglobin 8.7 g/dL (12.9-16.9); Immature Granulocytes % 0.9 % (0-4); Lymphocytes # 1.2 K/mcL (0.6-4.6); Lymphocytes % 5.9 %; Mean Corpuscular HGB Conc 30.3 g/dL (31.6-35.5); Mean Corpuscular Hemoglobin 29.6 pg (28.0-33.3); Mean Corpuscular Volume 97.6 fL (83.0-100.0); Monocytes # 1.7 K/mcL (0.0-1.3); Monocytes % 8.5 %; Neutrophils # 16.5 K/mcL (1.6-8.9); Platelet Count 339 K/mcL (140-400); Red Blood Count 2.94 M/mcL (4.19-5.50); Red Cell Distribution Width 14.1 % (11.5-14.5); Segmented Neutrophils % 83.4 %; White Blood Count 19.8 K/mcL (4.3-11.1)
[2021-08-29 07:07] LABS: Calcium 8.5 mg/dL (8.6-10.3); Magnesium 2.1 mg/dL (1.6-2.6); Phosphorous 4.6 mg/dL (2.7-4.5)
[2021-08-29] MEDS: Budesonide/Formoterol 160/4.5 1 PUFF INH IH SCH ×2 (07:22→19:55)
[2021-08-29] MEDS: Insulin LISPRO 300 UNITS/3 ML VIAL SUBQ SCH ×4 (09:03→20:58)
[2021-08-29] MEDS: Sucralfate 1 GM TABLET PO SCH ×5 (09:10→20:59)
[2021-08-29] MEDS: Metoprolol XL (24 HR) Succ 50 MG TAB.ER.24H PO SCH ×2 (09:10→20:59)
[2021-08-29] MEDS: DilTIAZem CD (24hr) 240 MG CAP.ER.24H PO SCH (09:10)
[2021-08-29] MEDS: FLUoxetine 20 MG CAPSULE PO SCH (09:10)
[2021-08-30] MEDS: Ipratropium/Albuterol Neb 3 ML IH SCH ×6 (03:54→23:47)
[2021-08-30 05:26] LABS: Basophils % 0.2 %; Eosinophils # 0.3 K/mcL (0.0-0.6); Eosinophils % 1.5 %; Hematocrit 27.6 % (37.5-50.1); Hemoglobin 8.5 g/dL (12.9-16.9); Immature Granulocytes % 0.7 % (0-4); Lymphocytes # 1.3 K/mcL (0.6-4.6); Lymphocytes % 7.2 %; Mean Corpuscular HGB Conc 30.8 g/dL (31.6-35.5); Mean Corpuscular Hemoglobin 29.8 pg (28.0-33.3); Mean Corpuscular Volume 96.8 fL (83.0-100.0); Mean Platelet Volume 10.7 fL (9.4-12.4); Monocytes # 1.7 K/mcL (0.0-1.3); Monocytes % 9.8 %; Platelet Count 364 K/mcL (140-400); Red Blood Count 2.85 M/mcL (4.19-5.50); Red Cell Distribution Width 13.9 % (11.5-14.5); Segmented Neutrophils % 80.6 %; White Blood Count 17.4 K/mcL (4.3-11.1)
[2021-08-30] MEDS: Pantoprazole 40 MG VIAL IVP SCH ×2 (05:38→17:01)
[2021-08-30] MEDS: *HR* Heparin 5,000 UNIT/ML VIAL SQ SCH ×4 (05:38→22:12)
[2021-08-30 05:39] LABS: Calcium 8.3 mg/dL (8.6-10.3); Potassium 3.8 mEq/L (3.5-5.1)
[2021-08-30] MEDS: Budesonide/Formoterol 160/4.5 1 PUFF INH IH SCH ×2 (07:25→19:58)
[2021-08-30] MEDS: Insulin LISPRO 300 UNITS/3 ML VIAL SUBQ SCH ×4 (08:07→20:25)
[2021-08-30] MEDS: Metoprolol XL (24 HR) Succ 50 MG TAB.ER.24H PO SCH ×2 (08:30→20:27)
[2021-08-30] MEDS: DilTIAZem CD (24hr) 240 MG CAP.ER.24H PO SCH (08:30)
[2021-08-30] MEDS: FLUoxetine 20 MG CAPSULE PO SCH (08:30)
[2021-08-30] MEDS: Sucralfate 1 GM TABLET PO SCH ×4 (08:30→20:27)
[2021-08-30 20:09] LABS: ABG Base Excess 5 mEq/L (-2 to 3); ABG HCO3 33 mEq/L (21-27); ABG Oxygen Saturation 96 % (95-98); ABG PCO2 67 mmHg (35-45); ABG PH 7.29 pH Units (7.32-7.45); ABG PO2 95 mmHg (85-104); ABG TCO2 35 mEq/L (20-26)
[2021-08-30] MEDS: *HR* LORazepam 2 MG/ML VIAL IVP PRN (20:27)
[2021-08-30] MEDS ORDERED: levoFLOXacin 500 MG/100 ML 500 MG/100 ML BAG IVPB SCH (21:00)
[2021-08-31 01:50] LABS: Basophils # 0.1 K/mcL (0.0-0.2); Basophils % 0.3 %; Eosinophils # 0.2 K/mcL (0.0-0.6); Eosinophils % 1.4 %; Hematocrit 29.8 % (37.5-50.1); Hemoglobin 8.9 g/dL (12.9-16.9); Immature Granulocytes % 0.7 % (0-4); Lymphocytes # 1.2 K/mcL (0.6-4.6); Mean Corpuscular HGB Conc 29.9 g/dL (31.6-35.5); Mean Corpuscular Hemoglobin 28.9 pg (28.0-33.3); Mean Corpuscular Volume 96.8 fL (83.0-100.0); Mean Platelet Volume 10.7 fL (9.4-12.4); Monocytes # 1.8 K/mcL (0.0-1.3); Monocytes % 10.3 %; Neutrophils # 14.2 K/mcL (1.6-8.9); Platelet Count 420 K/mcL (140-400); Red Blood Count 3.08 M/mcL (4.19-5.50); Segmented Neutrophils % 80.3 %; White Blood Count 17.7 K/mcL (4.3-11.1)
[2021-08-31 02:07] LABS: Calcium 8.3 mg/dL (8.6-10.3); Magnesium 1.9 mg/dL (1.6-2.6); Phosphorous 3.8 mg/dL (2.7-4.5); Potassium 3.9 mEq/L (3.5-5.1)
[2021-08-31] MEDS: Ipratropium/Albuterol Neb 3 ML IH SCH ×6 (04:21→23:52)
[2021-08-31] MEDS: *HR* Heparin 5,000 UNIT/ML VIAL SQ SCH ×3 (06:06→20:42)
[2021-08-31] MEDS: Pantoprazole 40 MG VIAL IVP SCH ×2 (06:06→15:58)
[2021-08-31] MEDS: Sucralfate 1 GM TABLET PO SCH ×4 (07:33→20:41)
[2021-08-31] MEDS: Insulin LISPRO 300 UNITS/3 ML VIAL SUBQ SCH ×4 (07:34→20:07)
[2021-08-31] MEDS: Budesonide/Formoterol 160/4.5 1 PUFF INH IH SCH ×2 (07:49→20:19)
[2021-08-31] MEDS: DilTIAZem CD (24hr) 240 MG CAP.ER.24H PO SCH (08:11)
[2021-08-31] MEDS: Metoprolol XL (24 HR) Succ 50 MG TAB.ER.24H PO SCH ×2 (08:11→20:40)
[2021-08-31] MEDS: FLUoxetine 20 MG CAPSULE PO SCH (08:11)
[2021-08-31] MEDS ORDERED: Ondansetron 4 MG/2 ML VIAL ONE (08:51)
[2021-08-31] MEDS ORDERED: Lidocaine -MPF 2% 2 ML VIAL ONE ×3 (08:51→08:52)
[2021-08-31] MEDS ORDERED: Lidocaine HCL 4 ML Topical Solution (Laryng-O-Jet Kit Sterile Pak) TP ONE (08:51)
[2021-08-31] MEDS ORDERED: *HR* Succinylcholine 200 MG/10 ML VIAL IVP ONE (08:51)
[2021-08-31] MEDS ORDERED: *HR* FentaNYL (PF) 100 MCG/2 ML VIAL ONE (08:51)
[2021-08-31] MEDS ORDERED: *HR* Midazolam HCl 2 MG/2 ML VIAL ONE (08:52)
[2021-08-31] MEDS ORDERED: *HR* Propofol 200 MG/20 ML VIAL IVP ONE (08:52)
[2021-08-31] MEDS ORDERED: Ipratropium/Albuterol Neb 3 ML IH ONE (09:38)
[2021-08-31] MEDS ORDERED: Acetaminophen IV 1,000 MG/100 ML BAG IVPB ONE (09:39)
[2021-08-31] MEDS ORDERED: *HR* Promethazine 25 MG/ML VIAL IVPB PRN (09:39)
[2021-08-31] MEDS ORDERED: *HR* Labetalol 20 MG/4 ML SYRINGE IVP PRN (09:39)
[2021-08-31] MEDS ORDERED: *HR* OxyCODONE Immed Rel 5 MG TABLET PO PRN (09:39)
[2021-08-31 09:42] LABS: ABG Base Excess 5 mEq/L (-2 to 3); ABG HCO3 36 mEq/L (21-27); ABG Oxygen Saturation 93 % (95-98); ABG PCO2 95 mmHg (35-45); ABG PH 7.18 pH Units (7.32-7.45); ABG PO2 86 mmHg (85-104); ABG TCO2 38 mEq/L (20-26)
[2021-08-31] MEDS ORDERED: *HR* EPINEPHrine 1 MG/10 ML SYRINGE INTRATRACH PRN (09:42)
[2021-08-31 10:56] LABS: ABG Base Excess 2 mEq/L (-2 to 3); ABG HCO3 34 mEq/L (21-27); ABG Oxygen Saturation 92 % (95-98); ABG PCO2 97 mmHg (35-45); ABG PH 7.15 pH Units (7.32-7.45); ABG PO2 87 mmHg (85-104); ABG TCO2 37 mEq/L (20-26); Blood Gas VT 650 cc
[2021-08-31 11:45] LABS: ABG Base Excess 3 mEq/L (-2 to 3); ABG HCO3 34 mEq/L (21-27); ABG Oxygen Saturation 93 % (95-98); ABG PCO2 93 mmHg (35-45); ABG PH 7.17 pH Units (7.32-7.45); ABG PO2 89 mmHg (85-104); ABG TCO2 37 mEq/L (20-26); Blood Gas VT 650 cc
[2021-08-31] MEDS ORDERED: Ringers Solution, Lactated 1,000 ML ONE (12:57)
[2021-08-31 13:15] LABS: ABG Base Excess 2 mEq/L (-2 to 3); ABG HCO3 32 mEq/L (21-27); ABG Oxygen Saturation 89 % (95-98); ABG PCO2 88 mmHg (35-45); ABG PH 7.17 pH Units (7.32-7.45); ABG PO2 74 mmHg (85-104); ABG TCO2 35 mEq/L (20-26); Blood Gas VT 715 cc
[2021-08-31 15:24] LABS: Appearance of Body Fluid Cloudy (Clear); Volume of Body Fluid 20 mL
[2021-08-31 15:25] LABS: Amorphous Sediment,Urine Few per hpf (None-Few); Bilirubin,Urine Negative (Negative); Blood,Urine Trace (Negative); Clarity,Urine Turbid (Clear); Color,Urine Light-Yellow (Yellow); Glucose,Urine (UA) Normal (Normal); Ketones,Urine Negative (Negative); Leukocyte Esterase,Urine Moderate (Negative); Mucus,Urine Few per lpf (None-Few); Nitrite,Urine Negative (Negative); PH,Urine 5.5 pH Units (5.0-8.0); Protein,Urine 50 mg/dL (Neg-Trace); RBC,Urine 0-3 per hpf (0-3); Renal Epithelial Cells,Urine Few per hpf (None-Few); Specific Gravity,Urine 1.012 (1.010-1.025); Squamous Epithelial Cell,Urine Few per hpf (None-Few); Transitional Epi Cells,Urine Few per hpf (None-Few); Urobilinogen,Urine Normal (Normal); WBC,Urine 15-30 per hpf (0-3)
[2021-08-31 15:31] LABS: Protein/Creatinine Ratio,Urine 0.75 mg/mg (0.00-0.20)
[2021-08-31 15:36] LABS: % Iron Saturation 8 % (20-55); Iron 17 mcg/dL (65-175); Transferrin 155 mg/dL (203-362)
[2021-08-31 15:53] LABS: Ferritin 943 ng/mL (20-250)
[2021-08-31 15:58] LABS: Folate 7.5 ng/mL (3.0-16.0)
[2021-08-31] MEDS: MethylPREDNISolone 40 MG/ML VIAL IVP SCH (15:58)
[2021-08-31 17:12] LABS: ABG Base Excess 4 mEq/L (-2 to 3); ABG HCO3 33 mEq/L (21-27); ABG Oxygen Saturation 90 % (95-98); ABG PCO2 80 mmHg (35-45); ABG PH 7.22 pH Units (7.32-7.45); ABG PO2 72 mmHg (85-104); ABG TCO2 36 mEq/L (20-26); Blood Gas VT 650 cc
[2021-08-31] MEDS ORDERED: Haloperidol Lactate 5 MG/ML VIAL IVP PRN (18:22)
[2021-08-31 20:57] LABS: ABG Base Excess 5 mEq/L (-2 to 3); ABG HCO3 34 mEq/L (21-27); ABG Oxygen Saturation 86 % (95-98); ABG PCO2 80 mmHg (35-45); ABG PH 7.23 pH Units (7.32-7.45); ABG PO2 64 mmHg (85-104); ABG TCO2 36 mEq/L (20-26); Blood Gas Modality BiLevel; Blood Gas VT 650 cc
[2021-08-31] MEDS ORDERED: *HR* LORazepam 2 MG/ML VIAL IVP ONE (21:41)
[2021-09-01] MEDS: MethylPREDNISolone 40 MG/ML VIAL IVP SCH ×3 (00:39→17:00)
[2021-09-01] MEDS ORDERED: *HR* LORazepam 2 MG/ML VIAL IVP ONE (02:43)
[2021-09-01 03:00] LABS: Basophils % 0.1 %; Hematocrit 28.7 % (37.5-50.1); Hemoglobin 8.6 g/dL (12.9-16.9); Immature Granulocytes % 0.5 % (0-4); Lymphocytes # 0.5 K/mcL (0.6-4.6); Lymphocytes % 3.8 %; Mean Corpuscular Hemoglobin 29.5 pg (28.0-33.3); Mean Corpuscular Volume 98.3 fL (83.0-100.0); Mean Platelet Volume 10.6 fL (9.4-12.4); Monocytes # 0.2 K/mcL (0.0-1.3); Monocytes % 1.6 %; Platelet Count 418 K/mcL (140-400); Red Blood Count 2.92 M/mcL (4.19-5.50); Red Cell Distribution Width 13.9 % (11.5-14.5); White Blood Count 13.1 K/mcL (4.3-11.1)
[2021-09-01 03:04] LABS: Neutrophils # 12.3 K/mcL (1.6-8.9)
[2021-09-01 03:18] LABS: Calcium 8.7 mg/dL (8.6-10.3); Magnesium 2.1 mg/dL (1.6-2.6); Phosphorous 5.8 mg/dL (2.7-4.5); Potassium 4.8 mEq/L (3.5-5.1)
[2021-09-01] MEDS: Ipratropium/Albuterol Neb 3 ML IH SCH ×6 (03:30→23:22)
[2021-09-01] MEDS: Pantoprazole 40 MG VIAL IVP SCH ×2 (05:50→17:00)
[2021-09-01] MEDS: *HR* Heparin 5,000 UNIT/ML VIAL SQ SCH ×3 (05:50→21:20)
[2021-09-01] MEDS: Budesonide/Formoterol 160/4.5 1 PUFF INH IH SCH ×2 (07:39→19:59)
[2021-09-01] MEDS: Insulin LISPRO 300 UNITS/3 ML VIAL SUBQ SCH ×4 (08:03→21:19)
[2021-09-01] MEDS ORDERED: Furosemide 20 MG/2 ML VIAL IVP SCH (09:45)
[2021-09-01] MEDS: Sucralfate 1 GM TABLET PO SCH ×4 (09:51→21:21)
[2021-09-01 10:37] LABS: ABG Base Excess 6 mEq/L (-2 to 3); ABG HCO3 35 mEq/L (21-27); ABG Oxygen Saturation 94 % (95-98); ABG PCO2 84 mmHg (35-45); ABG PH 7.23 pH Units (7.32-7.45); ABG PO2 89 mmHg (85-104); ABG TCO2 38 mEq/L (20-26); Blood Gas Modality NIV; Blood Gas VT 650 cc
[2021-09-01] MEDS ORDERED: Albumin 25% 25gram/100mL 25 GM/100 ML IV.SOLN IVPB ONE (11:00)
[2021-09-01] MEDS: DilTIAZem CD (24hr) 240 MG CAP.ER.24H PO SCH (12:21)
[2021-09-01] MEDS: Metoprolol XL (24 HR) Succ 50 MG TAB.ER.24H PO SCH ×2 (12:21→21:21)
[2021-09-01] MEDS: FLUoxetine 20 MG CAPSULE PO SCH (12:21)
[2021-09-01] MEDS: levoFLOXacin 750 MG/150 ML 750 MG/150 ML BAG IVPB SCH (13:49)
[2021-09-01] MEDS: Furosemide 40 MG/4 ML VIAL IVP SCH (21:20)
[2021-09-01] MEDS: Albumin 25% 25gram/100mL 25 GM/100 ML IV.SOLN IVPB SCH (21:27)
[2021-09-02] MEDS: MethylPREDNISolone 40 MG/ML VIAL IVP SCH ×3 (00:22→16:46)
[2021-09-02] MEDS: Ipratropium/Albuterol Neb 3 ML IH SCH ×6 (03:43→23:38)
[2021-09-02] MEDS: Pantoprazole 40 MG VIAL IVP SCH ×2 (06:56→16:47)
[2021-09-02] MEDS: *HR* Heparin 5,000 UNIT/ML VIAL SQ SCH ×3 (06:56→21:54)
[2021-09-02] MEDS: Budesonide/Formoterol 160/4.5 1 PUFF INH IH SCH ×2 (07:38→20:13)
[2021-09-02 08:00] LABS: Basophils % 0.1 %; Hematocrit 25.7 % (37.5-50.1); Hemoglobin 7.7 g/dL (12.9-16.9); Immature Granulocytes % 0.5 % (0-4); Lymphocytes # 0.5 K/mcL (0.6-4.6); Lymphocytes % 2.9 %; Mean Corpuscular Hemoglobin 28.7 pg (28.0-33.3); Mean Corpuscular Volume 95.9 fL (83.0-100.0); Mean Platelet Volume 10.6 fL (9.4-12.4); Monocytes # 0.4 K/mcL (0.0-1.3); Monocytes % 2.1 %; Neutrophils # 15.6 K/mcL (1.6-8.9); Platelet Count 367 K/mcL (140-400); Red Blood Count 2.68 M/mcL (4.19-5.50); Red Cell Distribution Width 14.1 % (11.5-14.5); Segmented Neutrophils % 94.4 %; White Blood Count 16.5 K/mcL (4.3-11.1)
[2021-09-02 08:12] LABS: Calcium 8.7 mg/dL (8.6-10.3); Magnesium 1.9 mg/dL (1.6-2.6); Phosphorous 3.6 mg/dL (2.7-4.5); Potassium 4.2 mEq/L (3.5-5.1)
[2021-09-02] MEDS: Sucralfate 1 GM TABLET PO SCH ×4 (08:46→21:54)
[2021-09-02] MEDS: FLUoxetine 20 MG CAPSULE PO SCH (08:46)
[2021-09-02] MEDS: DilTIAZem CD (24hr) 240 MG CAP.ER.24H PO SCH (08:46)
[2021-09-02] MEDS: Metoprolol XL (24 HR) Succ 50 MG TAB.ER.24H PO SCH ×2 (08:47→21:54)
[2021-09-02] MEDS: Furosemide 40 MG/4 ML VIAL IVP SCH ×2 (08:47→21:56)
[2021-09-02] MEDS: Insulin LISPRO 300 UNITS/3 ML VIAL SUBQ SCH ×4 (08:47→21:56)
[2021-09-02] MEDS: Albumin 25% 25gram/100mL 25 GM/100 ML IV.SOLN IVPB SCH ×2 (08:51→21:55)
[2021-09-02] MEDS ORDERED: Loratadine 10 MG TABLET PO PRN (08:53)
[2021-09-02] MEDS: Aspirin Enteric Coated 81 MG Tablet PO SCH (10:39)
[2021-09-02] MEDS: metOLazone 2.5 MG TABLET PO SCH (12:08)
[2021-09-02 18:00] LABS: Lambda Qnt Free Light Chains 70.2 mg/L (5.71-26.30)
[2021-09-03] MEDS: MethylPREDNISolone 40 MG/ML VIAL IVP SCH ×3 (01:19→15:32)
[2021-09-03] MEDS: Saline Nasal Spray 44 ML BOTTLE NS PRN (02:39)
[2021-09-03] MEDS: *HR* Metoprolol 5 MG/5 ML VIAL IVP PRN (03:04)
[2021-09-03] MEDS: Ipratropium/Albuterol Neb 3 ML IH SCH ×5 (04:12→20:31)
[2021-09-03] MEDS ORDERED: 0.9 % Sodium Chloride 250 ML ONE (04:23)
[2021-09-03] MEDS: *HR* Heparin 5,000 UNIT/ML VIAL SQ SCH ×3 (06:26→20:06)
[2021-09-03] MEDS: Sucralfate 1 GM TABLET PO SCH ×4 (06:26→20:05)
[2021-09-03] MEDS: Pantoprazole 40 MG VIAL IVP SCH ×2 (06:27→16:46)
[2021-09-03] MEDS: Budesonide/Formoterol 160/4.5 1 PUFF INH IH SCH ×2 (07:40→20:30)
[2021-09-03] MEDS: Insulin LISPRO 300 UNITS/3 ML VIAL SUBQ SCH ×4 (08:12→21:08)
[2021-09-03] MEDS: metOLazone 2.5 MG TABLET PO SCH (08:13)
[2021-09-03] MEDS: DilTIAZem CD (24hr) 240 MG CAP.ER.24H PO SCH (08:13)
[2021-09-03] MEDS: FLUoxetine 20 MG CAPSULE PO SCH (08:13)
[2021-09-03] MEDS: Furosemide 40 MG/4 ML VIAL IVP SCH ×2 (08:13→20:07)
[2021-09-03] MEDS: Aspirin Enteric Coated 81 MG Tablet PO SCH (08:13)
[2021-09-03] MEDS: Albumin 25% 25gram/100mL 25 GM/100 ML IV.SOLN IVPB SCH ×2 (08:13→21:19)
[2021-09-03] MEDS: Metoprolol XL (24 HR) Succ 50 MG TAB.ER.24H PO SCH ×2 (08:14→20:06)
[2021-09-03 10:21] LABS: Hematocrit 25.9 % (37.5-50.1); Hemoglobin 8.1 g/dL (12.9-16.9); Immature Granulocytes % 0.7 % (0-4); Lymphocytes # 0.3 K/mcL (0.6-4.6); Lymphocytes % 3.1 %; Mean Corpuscular HGB Conc 31.3 g/dL (31.6-35.5); Mean Corpuscular Hemoglobin 29.7 pg (28.0-33.3); Mean Corpuscular Volume 94.9 fL (83.0-100.0); Mean Platelet Volume 10.4 fL (9.4-12.4); Monocytes # 0.3 K/mcL (0.0-1.3); Monocytes % 2.6 %; Neutrophils # 10.1 K/mcL (1.6-8.9); Platelet Count 362 K/mcL (140-400); Red Blood Count 2.73 M/mcL (4.19-5.50); Red Cell Distribution Width 14.1 % (11.5-14.5); Segmented Neutrophils % 93.6 %; White Blood Count 10.8 K/mcL (4.3-11.1)
[2021-09-03 10:42] LABS: Calcium 9.2 mg/dL (8.6-10.3); Potassium 4.2 mEq/L (3.5-5.1)
[2021-09-03 11:07] LABS: ANA IgG by ELISA NONE DETECTED (None Detected); Kappa Qnt Free Light Chains 127.39 mg/L (3.30-19.40)
[2021-09-03] MEDS: levoFLOXacin 750 MG/150 ML 750 MG/150 ML BAG IVPB SCH (15:30)
[2021-09-03 16:42] LABS: ANCA IFA Titer <1:20 (<1:20)
[2021-09-03] MEDS: Levalbuterol Neb 1.25 MG/3 ML IH SCH (23:52)
[2021-09-04] MEDS: MethylPREDNISolone 40 MG/ML VIAL IVP SCH ×2 (00:16→08:27)
[2021-09-04 02:36] LABS: Basophils % 0.1 %; Hematocrit 24.8 % (37.5-50.1); Hemoglobin 7.7 g/dL (12.9-16.9); Immature Granulocytes % 0.3 % (0-4); Lymphocytes # 0.5 K/mcL (0.6-4.6); Lymphocytes % 4.3 %; Mean Corpuscular Hemoglobin 28.9 pg (28.0-33.3); Mean Corpuscular Volume 93.2 fL (83.0-100.0); Mean Platelet Volume 10.6 fL (9.4-12.4); Monocytes # 0.5 K/mcL (0.0-1.3); Monocytes % 4.4 %; Neutrophils # 9.7 K/mcL (1.6-8.9); Platelet Count 335 K/mcL (140-400); Red Blood Count 2.66 M/mcL (4.19-5.50); Segmented Neutrophils % 90.9 %; White Blood Count 10.6 K/mcL (4.3-11.1)
[2021-09-04 02:58] LABS: Calcium 9.3 mg/dL (8.6-10.3); Potassium 4.1 mEq/L (3.5-5.1)
[2021-09-04] MEDS: Levalbuterol Neb 1.25 MG/3 ML IH SCH ×3 (04:14→16:05)
[2021-09-04] MEDS: *HR* Heparin 5,000 UNIT/ML VIAL SQ SCH ×2 (05:14→13:28)
[2021-09-04] MEDS: Pantoprazole 40 MG VIAL IVP SCH (05:15)
[2021-09-04 07:49] LABS: Alpha 2 Globulin (PEP) 1.03 g/dL (0.48-1.05); Beta Globulin (PEP) 0.88 g/dL (0.48-1.10)
[2021-09-04] MEDS: Sucralfate 1 GM TABLET PO SCH ×2 (08:26→11:37)
[2021-09-04] MEDS: DilTIAZem CD (24hr) 240 MG CAP.ER.24H PO SCH (08:26)
[2021-09-04] MEDS: Metoprolol XL (24 HR) Succ 50 MG TAB.ER.24H PO SCH (08:26)
[2021-09-04] MEDS: Aspirin Enteric Coated 81 MG Tablet PO SCH (08:26)
[2021-09-04] MEDS: metOLazone 2.5 MG TABLET PO SCH (08:26)
[2021-09-04] MEDS: FLUoxetine 20 MG CAPSULE PO SCH (08:26)
[2021-09-04] MEDS: Albumin 25% 25gram/100mL 25 GM/100 ML IV.SOLN IVPB SCH (08:27)
[2021-09-04] MEDS: Furosemide 40 MG/4 ML VIAL IVP SCH (08:27)
[2021-09-04] MEDS: Insulin LISPRO 300 UNITS/3 ML VIAL SUBQ SCH ×2 (08:27→11:37)
[2021-09-04 09:55] LABS: ANCA IFA Pattern NONE DETECTED (None Detected); Serine Protease-3 Antibody 1 AU/mL (0-19)
[2021-09-04 10:02] LABS: IFE Reflexed NOT DONE
[2021-09-04] MEDS: Budesonide/Formoterol 160/4.5 1 PUFF INH IH SCH (10:34)
[2021-09-04 15:51] VITALS: BP 125/71; PULSE 93; TEMP 97.7; O2SAT 92
[2021-09-04 18:13] LABS: Influenza A PCR Body Fluid NOT DETECTED; Influenza B PCR Body Fluid NOT DETECTED; RVP Body Fluid Source BAL
[2021-09-05 09:59] LABS: RSV PCR Body Fluid NOT DETECTED
== END 2021-09-04 17:09 | disposition home health service (06) | DRG 871 ==
LOC: 2ANU 12:57 → EMEROOARM 12:57 → SUATTDRO 16:39 → 2ANU 17:35 → SUATTDRO 17:55 → 2NNU 08-17 13:59 → 2ANU 08-27 13:57
PROVIDERS: ADMIT Family Medicine; ATTEND Hospitalist